=== PATIENT | female | born 1965 | race Caucasian/White ===

== ENCOUNTER 2020-09-23 19:18 | Emergency (ER) | payer OTHER, SELFPAY ==
[2020-09-23 19:25] VITALS: BP 132/60; PULSE 77; RESP 20; TEMP 36.8; O2SAT 100
--- NOTE | 2020-09-23 19:25 | ED.FEMALEGU ---
HPI - Female Genitourinary General Stated complaint: backache Time Seen by Provider: 09/23/20 19:25 Source: patient Mode of arrival: ambulatory Related Data Allergies Allergy/AdvReac Type Severity Reaction Status Date / Time No Known Allergies Allergy Unverified 01/27/19 09:12 Review of Systems Review of Systems: Narrative: CONSTITUTIONAL: Denies fever, chills, or sweats. EYES: Denies visual changes, redness, or discharge. ENT: Denies rhinorrhea, congestion, sore throat, or otalgia. CARDIOVASCULAR: Denies chest pain, palpitations, or edema. RESPIRATORY: Denies cough or dyspnea. GASTROINTESTINAL: Denies abdominal pain, nausea, vomiting, or diarrhea. GENITOURINARY: Denies dysuria or hematuria. SKIN: Denies rash or itching. MUSCULOSKELETAL: Denies back pain, joint pain, or myalgia. NEUROLOGIC: Denies headache, numbness, or weakness. PSYCHIATRIC: Denies anxiety or depression. COUNT INCLUDES THE [facility] Past Medical History Medical History (Updated 09/23/20 @ 19:26 by NAINA Wong) Asthma Bronchitis Female reproductive system disorder Fibroid surgery, 2014 Pneumonia Seasonal allergies Surgical History Surgical History (Updated 10/10/19 @ 10:03 by NAINA Sanders) History of appendectomy Comments At time of signature, agree with nursing past medical, surgical, social and family history. There is no relevant family history pertinent to the presenting complaint Exam Narrative: Exam Narrative: GENERAL: Well-appearing, well-nourished, and in no acute distress. HEAD: Normocephalic, atraumatic. EYES: PERRLA and EOMI. ENT: Nares clear, no rhinorrhea or epistaxis. Mucous membranes moist. NECK: Supple. CHEST: Clear to auscultation. No respiratory distress. HEART: Regular rate and rhythm. No murmur heard. Normal peripheral pulses. ABDOMEN: Soft, nontender, nondistended, normal active bowel sounds. EXTREMITIES: Normal range of motion. No edema. SKIN: Warm, dry, no rash. NEURO: No focal deficits. Alert and oriented x3. Romaine Coma Scale Eye Opening: Spontaneous 4 Romaine Coma Scale Motor: Obeys Commands 6 Romaine Coma Scale Verbal: Oriented 5 [place] Coma Scale Total 15 MDM - Female Genitourinary Differential Diagnosis Differential diagnosis: Likely urinary tract infection, bacterial vaginosis, trichomoniasis, cervicitis, ovarian cyst, vaginitis, ruptured ovarian cyst, cyst of Bartholin's gland and dysmenorrhea Critical Care Time Critical Care Time Critical Care Time: No Discharge Plan Discharge Clinical Impression: Low back ache Patient Disposition: Home, Self-Care Condition: Stable Instructions: Antibiotic Form Prescriptions: No Action nitrofurantoin monohyd/m-cryst [Macrobid] 100 mg capsule 100 mg PO Q12H 5 Days Qty: 10 RF: 0 Follow-up/Referrals: Saad Casarez MD [Primary Care Provider] -
--- NOTE | 2020-09-23 19:30 | ED.BACK ---
HPI - Back Pain/Injury General Chief Complaint: Back Pain/Injury Stated Complaint: backache Time Seen by Provider: 09/23/20 19:25 History of Present Illness HPI Narrative: Patient presents with left upper back pain. 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 Patient denies any shortness of breath no chest pain. Patient states she has been applying heat and ice and her tried to massage the area out but has not relieved the pain. Patient took ibuprofen this morning for pain which did not help much and took a Flexeril prior to arrival for pain which did not help much. Patient denies any radiation of pain no numbness or tingling. Patient states she has had pain like this in the past but her is usually able to massage out the muscle spasm. Patient states she feels nauseated due to the pain and requests prescription for Zofran for her nausea. Related Data Allergies Allergy/AdvReac Type Severity Reaction Status Date / Time No Known Allergies Allergy Verified 09/23/20 19:35 Review of Systems Review of Systems: Narrative: CONSTITUTIONAL: Denies fever, chills, or sweats. EYES: Denies visual changes, redness, or discharge. ENT: Denies rhinorrhea, congestion, sore throat, or otalgia. CARDIOVASCULAR: Denies chest pain, palpitations, or edema. RESPIRATORY: Denies cough or dyspnea. GASTROINTESTINAL: Denies abdominal pain, nausea, vomiting, or diarrhea. GENITOURINARY: Denies dysuria or hematuria. SKIN: Denies rash or itching. MUSCULOSKELETAL: Denies back pain, joint pain, or myalgia. NEUROLOGIC: Denies headache, numbness, or weakness. PSYCHIATRIC: Denies anxiety or depression. [facility] Past Medical History Medical History (Updated 09/23/20 @ 19:32 by NAINA Wong) Asthma Bronchitis Female reproductive system disorder Fibroid surgery, 2014 Pneumonia Seasonal allergies Surgical History Surgical History (Updated 10/10/19 @ 10:03 by NAINA Sanders) History of appendectomy Comments At time of signature, agree with nursing past medical, surgical, social and family history. There is no relevant family history pertinent to the presenting complaint Exam Narrative: Exam Narrative: GENERAL: Well-appearing, well-nourished, and in no acute distress. HEAD: Normocephalic, atraumatic. EYES: PERRLA and EOMI. ENT: Nares clear, no rhinorrhea or epistaxis. Mucous membranes moist. NECK: Supple. CHEST: Clear to auscultation. No respiratory distress. HEART: Regular rate and rhythm. No murmur heard. Normal peripheral pulses. ABDOMEN: Soft, nontender, nondistended, normal active bowel sounds. EXTREMITIES: Normal range of motion. No edema. SPINE MIDLINE. NO CURVATURE APPARENT. NO VERTEBRAL POINT SPECIFIC TENDERNESS. NO DEFORMITY. NO STEP-OFFS. NORMAL LE STRENGTH BILATERALLY. NORMAL LE SENSATION BILATERALLY. ABLE TO WALK ON TOES AND HEELS WITH NORMAL DORSIFLEXION AND PLANTAR FLEXION STRENGTH. NO WEAKNESS OBSERVED WITH GAIT. - PARASPINAL MUSCLE TENDERNESS. - SI JOINT TENDERNESS. FLEXION AND EXTENSION ROM SKIN: Warm, dry, no rash. NEURO: No focal deficits. Alert and oriented x3. Romaine Coma Scale Eye Opening: Spontaneous 4 Romaine Coma Scale Motor: Obeys Commands 6 Romaine Coma Scale Verbal: Oriented 5 [place] Coma Scale Total 15 Course Vital Signs Vital signs: Vital Signs Temperature 36.8 C 09/23/20 19:25 Pulse Rate 77 09/23/20 19:25 Respiratory Rate 20 09/23/20 19:25 Blood Pressure 132/60 09/23/20 19:25 Pulse Oximetry 100 09/23/20 19:25 Temperature 36.8 C 09/23/20 19:25 Pulse Rate 77 09/23/20 19:25 Respiratory Rate 20 09/23/20 19:25 Blood Pressure 132/60 09/23/20 19:25 Pulse Oximetry 100 09/23/20 19:25 Red flags discussed for back pain. Advised f/u with PCP within the next week and discussed lifting restrictions of less than 10-15# for the next 5-7 days. Discussed Rx medication and
[2020-09-23] MEDS: KETOROLAC (*BKC) 60 MG/2 ML VIAL 30 MG IM (19:56)
== END 2020-09-23 20:20 | disposition home or self-care (01) ==
PROVIDERS: Emergency Provider Nurse Practitioner Family; PCP Emergency Medicine
DX: M54.5 Low back pain (principal); M62.830 Muscle spasm of back; J45.909 Unspecified asthma, uncomplicated
CPT/HCPCS: 96372; 99213; G0463; J1885

== ENCOUNTER 2020-11-25 08:20 | Emergency (ER) | payer OTHER, SELFPAY ==
[2020-11-25 08:27] VITALS: BP 118/77; PULSE 67; RESP 16; TEMP 36.2; O2SAT 99
--- NOTE | 2020-11-25 09:02 | ED.FEMALEGU ---
HPI - Female Genitourinary General Chief complaint: Urogenital-Female Stated complaint: POS UTI Time Seen by Provider: 11/25/20 08:47 Source: patient and RN notes reviewed Mode of arrival: ambulatory Limitations: no limitations History of Present Illness HPI Narrative: Patient presents today complaining of low back pain since yesterday morning. Denies any additional symptoms. States that she has a UTI that has spread to her kidneys, and this is normally her only symptom when this occurs. She is very confident that this is what is causing her symptoms. Denies injury or trauma. Denies radiation of pain. Denies heavy lifting. Denies dysuria, hematuria, frequency, urgency, fever, sweats or chills. Denies numbness or tingling in the legs or feet. Denies numbness or tingling of the genitalia. Denies any loss of bowel or bladder control. States she has been rather sedentary for at least a couple of weeks as she has been taking care of her who is in a long-leg cast after reconstructive surgery on his leg. States she has been camping out on the couch. Currently rates her pain 2/10 and has been taking ibuprofen, but cannot say if this is providing her any relief. MD elicited complaint: UTI Related Data Allergies Allergy/AdvReac Type Severity Reaction Status Date / Time No Known Allergies Allergy Verified 09/23/20 19:35 Review of Systems Review of Systems: Narrative: CONSTITUTIONAL: Denies body aches, fever, chills, or sweats. EYES: Denies visual changes, redness, or discharge. ENT: Denies rhinorrhea, congestion, sore throat, or otalgia. CARDIOVASCULAR: Denies chest pain, palpitations, or edema. RESPIRATORY: Denies cough or dyspnea. GASTROINTESTINAL: Denies abdominal pain, nausea, vomiting, or diarrhea. GENITOURINARY: Denies dysuria or hematuria. SKIN: Denies rash, itching, or wounds. MUSCULOSKELETAL: Denies joint pain, or myalgia. + Low back pain NEUROLOGIC: Denies headache, numbness, tingling, or weakness. PSYCH: Denies depression or anxiety. [facility] Past Medical History Medical History (Updated 11/25/20 @ 09:03 by Radha Keyes, [employer], ) Asthma Bronchitis Female reproductive system disorder Fibroid surgery, 2014 Pneumonia Seasonal allergies Surgical History Surgical History (Updated 10/10/19 @ 10:03 by NAINA Sanders) History of appendectomy Comments At time of signature, I have reviewed and agree with nursing past medical, surgical, social and family history unless otherwise noted. Please see nursing chart for further information. There is no relevant family history pertinent to the presenting complaint Exam Narrative: Exam Narrative: GENERAL: Well-appearing, well-nourished, and in no acute distress. HEAD: Normocephalic, atraumatic. EYES: EOMI. No redness or drainage. Conjunctivae normal. ENT: Mucous membranes pink and moist. NECK: Normal AROM. CHEST: No respiratory distress. Clear to auscultation. HEART: Regular rate and rhythm. No murmur appreciated. Normal peripheral pulses. ABDOMEN: Soft, nontender, nondistended, normal active bowel sounds. -CVAT MUSCULOSKELETAL: No bony tenderness of thoracic or lumbar spine. No paraspinal muscle tenderness of the thoracic or lumbar spine. Patient localizes her pain in the lower lumbar paraspinal muscles, but they are not tender to palpation. Distal sensation intact. Capillary refill normal. Dorsiflexion and plantarflexion equal and strong. Saddle sensation normal. EXTREMITIES: Normal range of motion. No edema. SKIN: Warm, dry, no rash. Capillary refill normal. Normal skin turgor. NEURO: No focal deficits. Alert and oriented x3. Gait steady. PSYCH: Normal affect. No signs of depression or anxiety. Course Vital Signs Vital signs: Vital Signs Temperature 97.2 F L 11/25/20 08:27 Pulse Rate 67 11/25/20 08:27 Respiratory Rate 16 11/25/20 08:27 Blood Pressure 118/77 11/25/20 08:27 Pulse Oximetry 99 11/25/20 08:27 T
== END 2020-11-25 09:10 | disposition home or self-care (01) ==
PROVIDERS: Emergency Provider Nurse Practitioner; PCP Emergency Medicine
DX: M54.5 Low back pain (principal); J45.909 Unspecified asthma, uncomplicated
CPT/HCPCS: 81003; 87086; 99213; G0463

== ENCOUNTER 2022-04-02 10:55 | Outpatient (CLI) | payer OTHER, SELFPAY | END 2022-04-02 10:56 | disposition home or self-care (01) | PROVIDERS: PCP Emergency Medicine; Visit Provider Emergency Medicine | DX: H90.3 Sensorineural hearing loss, bilateral (principal) | CPT/HCPCS: 92557; 92567 ==

== ENCOUNTER → 2022-05-05 13:33 | Outpatient (CLI) | payer OTHER, SELFPAY ==
--- NOTE | ~2022-05-05 | DEXA_ITS ---
Bone Density Report Name: CHARLI MOTTA Age: 56 Sex: Female Ethnicity: White Date of : 1965 Indication: postmenopausal; screening for osteoporosis; Referring Provider: VIKKI LANCE Study: Bone densitometry was performed. Exam Date: May 05, 2022 Accession number: [id number] Bone Density: Region BMD T-score Z-score Classification AP Spine (L1-L4) 0.887 -1.5 -0.3 Osteopenia Femoral Neck (Left) 0.716 -1.2 -0.1 Osteopenia Total Hip (Left) 0.896 -0.4 0.4 Normal Femoral Neck (Right) 0.711 -1.2 -0.1 Osteopenia Total Hip (Right) 0.877 -0.5 0.2 Normal Total Hip Mean 0.887 -0.5 0.3 Normal World Health Organization criteria for BMD impression classify patients as: Normal (T-score at or above -1.0), Osteopenia (T-score between -1.0 and -2.5), or Osteoporosis (T-score at or below -2.5). 10-year Fracture Risk(1): Major Osteoporotic Fracture 6.4% Hip Fracture 0.4% Reported Risk Factors: [place] (), Neck BMD=0.711, BMI=29.5 (1) FRAX(R) Version 3.08. Fracture probability calculated for an untreated patient. Fracture probability may be lower if the patient has received treatment. Clinical Information Provided by Patient: Has used the following medications: Calcium, MULT VIT Patient maximum height was 62 Menopause Age: 48 No regular weight bearing exercise Does not regularly consume dairy products Drinks caffeinated beverages Onset of menses at age 14 Number of children 0 Impression: The patient has low bone mass, based on the Total Spine T-score. The patient has an estimated ten-year risk of hip fracture of 0.4% and an estimated ten-year risk of major fracture of 6.4%, based on the WHO FRAX algorithm. Discussion: BONE DENSITY IS LOW AT ONE OR MORE SKELETAL SITES. This patient's lowest T-score is low at one or more skeletal sites. It meets the World Health Organization's (WHO) criteria for ?low bone mass? (T-score between -1.0 and -2.5). The patient's 10-year risk of fracture as calculated by FRAX is less than the threshold where pharmacological therapy is recommended by the National Osteoporosis Foundation (NOF). However, all treatment decisions require clinical judgment and consideration of individual patient factors, including patient preferences, comorbidities, previous drug use, risk factors not captured in the FRAX model (e.g., frailty, falls, vitamin D deficiency, increased bone turnover, interval significant decline in bone density) and possible under or overestimation of fracture risk by FRAX. The patient should follow a healthful lifestyle (good nutrition with adequate calcium and vitamin D, and appropriate weight-bearing exercise). Follow-Up: Consider repeating this study in 2 to 3 years to reassess this patient's status, or sooner if there is some new clinical indication. Report
== END ==
PROVIDERS: PCP Emergency Medicine; Visit Provider Emergency Medicine
DX: Z78.0 Asymptomatic menopausal state (principal); M85.89 Other specified disorders of bone density and structure, multiple sites
CPT/HCPCS: 77080

== ENCOUNTER 2022-06-17 10:30 | Outpatient (RCR) | payer OTHER, SELFPAY | END 2022-07-12 23:59 | disposition home or self-care (01) | LOC: ANHAUDASC 10:30 | PROVIDERS: PCP Emergency Medicine; Visit Provider Emergency Medicine | DX: Z46.1 Encounter for fitting and adjustment of hearing aid (principal) | CPT/HCPCS: 99199; V5261 ==

== ENCOUNTER → 2023-08-18 10:12 | Outpatient (CLI) | payer OTHER, SELFPAY ==
--- NOTE | ~2023-08-18 | XR_ITS ---
EXAMINATION: XR toe 1st LT min 2V, XR toe 1st RT min 2V DATE: 08/18/2023 10:32 INDICATION: Bilateral great toe pain TECHNIQUE: 1. Dorsal plantar, lateral and 2 oblique views of the left great toe were obtained. 2. Dorsal plantar, lateral and 2 oblique views of the right great toe were obtained. COMPARISON: 07/19/2008 FINDINGS: Normal alignment at the visualized portions of the medial aspect of both the left and right feet. No fractures. Slight interval progression in now mild to moderate osteoarthritis at the bilateral first metatarsophalangeal joints. No significant change in additional mild osteoarthritis at the visualized interphalangeal joints. No erosions to suggest inflammatory arthritis. Soft tissues are unremarkable . IMPRESSION: Relatively symmetric polyarticular osteoarthritis in both feet with slight progression in mild to moderate osteoarthritis at the bilateral first metatarsophalangeal joints with additional sc attered mild osteoarthritis in the mid and forefoot. Reviewed, dictated and finalized at location A. IMPRESSION: Relatively symmetric polyarticular osteoarthritis in both feet with slight progression in mild to moderate osteoarthritis at the bilateral first m etatarsophalangeal joints with additional scattered mild osteoarthritis in the mid and forefoot.
== END ==
PROVIDERS: PCP Emergency Medicine; Visit Provider Emergency Medicine
DX: M19.071 Primary osteoarthritis, right ankle and foot (principal); M19.072 Primary osteoarthritis, left ankle and foot
CPT/HCPCS: 73660